=== PATIENT | female | born 1960 | race African-American/Black ===

== ENCOUNTER 2019-04-12 23:12 | Inpatient (IN) | payer MEDICAID ==
[~2019-04-12] VITALS: Ht 165.1 cm; Wt 115.3 kg
[~2019-04-12 23:12] MED LIST: ATEN100T PO; CHOL20009 PO; CYAN500L3 PO; FERR-7 PO; TRIA50TA2 PO
[2019-04-13] MEDS ORDERED: ONDANSETRON HCL 4 MG/2 ML VIAL IV ONE (00:15)
[2019-04-13] MEDS ORDERED: HYDROmorphone HCL 2 MG/ML VL IV ONE ×2 (00:15→02:30)
[2019-04-13 00:20] LABS: Basophils # (auto) 0 uL; Basophils % (auto) 0.4 % (0.0-2.0); Eosinophils # (auto) 0.1 uL; Eosinophils % (auto) 1.9 % (0.0-7.0); Hematocrit 46.9 % (36.0-46.0); Hemoglobin 15.3 g/dL (12.2-16.2); Lymphocytes # (auto) 1.3 uL; Lymphocytes % (auto) 18.6 % (10.0-50.0); Mean Corpuscular Hemoglobin 28.5 pg (28.0-32.0); Mean Corpuscular Hgb Conc. 32.7 g/dL (32.0-36.0); Mean Corpuscular Volume 87.1 fL (80.0-100.0); Monocytes # (auto) 0.4 uL; Neutrophils % (auto) 73.1 % (37.0-80.0); Platelet Count (auto) 212 10^3/uL (140-450); Red Blood Cells 5.38 10^6/uL (4.0-5.20); Red Cell Distribution Width 14.2 % (11.8-14.3); White Blood Cell 6.9 10^3/uL (4.4-10.8)
[2019-04-13 00:41] LABS: Amylase 48 U/L (25-115); Lipase 91 U/L (73-393)
[2019-04-13 00:44] LABS: INR 1.04 (0.9-1.15); Partial Thromboplastin Time 26.8 sec (23.64-32.05)
[2019-04-13 00:45] LABS: Albumin 3.6 g/dL (3.4-5.0); BUN/Creatinine Ratio 13.2; Calcium 10.4 mg/dL (8.5-10.1); Magnesium 1.9 mg/dL (1.6-2.6); Potassium 3.2 mmol/L (3.5-5.1)
[2019-04-13 00:53] LABS: Bilirubin, Total 0.5 mg/dL (0.2-1.0); Total Protein 8.2 g/dL (6.4-8.2)
[2019-04-13] MEDS ORDERED: COCAINE HCL 4% TOP SOL 4ML TOP ONE (01:00)
[2019-04-13] MEDS ORDERED: DEXTROSE (50%) 50ML SYRG IV PRN (05:30)
[2019-04-13] MEDS ORDERED: POTASSIUM CHL 20MEQ/100ML 100 ML IV ONE (05:30)
[2019-04-13] MEDS ORDERED: ONDANSETRON HCL 4 MG/2 ML VIAL IV PRN (05:30)
[2019-04-13] MEDS ORDERED: NITROGLYCERIN 0.4 MG SL TAB SL PRN (05:45)
[2019-04-13] MEDS ORDERED: MORPHINE SULF INJ 2 MG/ML SYRINGE 1ML IV PRN (05:45)
[2019-04-13] MEDS: SODIUM CHLORIDE 0.9% 1,000 ML IV SCH ×2 (06:45→20:15)
[2019-04-13] MEDS: InsuLIN REG 1unit/0.01ml Soln (100units/ml) SC SCH ×4 (07:00→22:00)
[2019-04-13] MEDS ORDERED: ACCU-CHEK COMFORT CURVE STRIP VI SCH (07:00)
[2019-04-13] MEDS: MORPHINE SULF INJ 2 MG/ML SYRINGE 1ML IV PRN ×2 (08:59→20:22)
[2019-04-13] MEDS: PANTOPRAZOLE 40 MG/10 ML VIAL INJ IV SCH (09:01)
[2019-04-13] MEDS ORDERED: GASTROGRAFIN 120 ML SOL ONE (09:12)
--- NOTE | 2019-04-13 18:38 | NUR ---
Telemetry admit from RON[facility] HALLMARTIN admitted to Telemetry unit after SBAR received. Patient oriented to Louise renee RN, unit, room, bed, and unit policies regarding patient care and visiting hours. Patient now on continuous telemetry monitoring, tele box # [id number] and telemetry reading on arrival to unit is SR 88. Patient weighed by bedscale and encouraged to call if they need something. Call light within reach, NG tube noted to left nare, placement verified via auscultation, resumed low intermittent suction as ordered by Dr Melissa Claudio, All questions and concerns addressed, patient verbalized understanding to call for assist, no current c/o pain Addendum: 04/13/19 at 1929 by Louise Qiuntero RN HYPOACTIVE BOWEL SOUNDS
--- NOTE | 2019-04-13 20:30 | NUR ---
Assessment - After repositioning, patient had 900 ml of green bile output from suction canister. Replaced canister. Patient stated she felt less pressure. No c/o of any nausea. PRN pain medication administered. Will continue to monitor.
[2019-04-13 22:00] VITALS: BP 111/62
[2019-04-14] MEDS ORDERED: DEXTROSE (50%) 50ML SYRG IV PRN (01:45)
[2019-04-14 05:03] VITALS: BP 132/72
[2019-04-14] MEDS: ACCU-CHEK COMFORT CURVE STRIP VI SCH ×2 (06:08→11:30)
[2019-04-14] MEDS: SODIUM CHLORIDE 0.9% 1,000 ML IV SCH (06:09)
[2019-04-14] MEDS: InsuLIN REG 1unit/0.01ml Soln (100units/ml) SC SCH ×4 (06:09→11:30)
--- NOTE | 2019-04-14 07:02 | NUR ---
TOTAL 1600 ML OF GREEN BILE OUTPUT FROM SUCTION CANISTER (LIS).
[2019-04-14 07:16] LABS: Basophils # (auto) 0.1 uL; Basophils % (auto) 1.1 % (0.0-2.0); Eosinophils # (auto) 0 uL; Eosinophils % (auto) 0.8 % (0.0-7.0); Hematocrit 45.7 % (36.0-46.0); Hemoglobin 14.7 g/dL (12.2-16.2); Lymphocytes # (auto) 0.7 uL; Lymphocytes % (auto) 14.7 % (10.0-50.0); Mean Corpuscular Hemoglobin 28.6 pg (28.0-32.0); Mean Corpuscular Hgb Conc. 32.1 g/dL (32.0-36.0); Mean Corpuscular Volume 88.9 fL (80.0-100.0); Monocytes # (auto) 0.5 uL; Monocytes % (auto) 10.9 % (0.0-12.0); Neutrophils # (auto) 3.6 uL; Neutrophils % (auto) 72.5 % (37.0-80.0); Nucleated Red Blood Cells % 0.1 %; Platelet Count (auto) 195 10^3/uL (140-450); Red Blood Cells 5.14 10^6/uL (4.0-5.20); Red Cell Distribution Width 14.3 % (11.8-14.3)
[2019-04-14 07:31] LABS: Calcium 9.4 mg/dL (8.5-10.1); Magnesium 2.2 mg/dL (1.6-2.6); Potassium 3.2 mmol/L (3.5-5.1)
[2019-04-14 07:35] LABS: BUN/Creatinine Ratio 23.1
[2019-04-14] MEDS ORDERED: POTASSIUM CHLORIDE 40 MEQ, LIDOCAINE 1% (LOCAL ANESTH.) 4 ML in SODIUM CHL 0.9% 100 ML IV ONE (07:45)
--- NOTE | 2019-04-14 08:00 | NUR ---
ASSUMED CARE, RESTFUL, DENIES PAIN. NG YIELDS DARK GREEN TINGED FLUID. DENIES N/V.
[2019-04-14 09:00] VITALS: BP 121/62
[2019-04-14] MEDS ORDERED: OPTISON 3ml Vial for INJ IV ONE (11:16)
--- NOTE | 2019-04-14 11:30 | NUR ---
ECHO PERFORMED AT BEDSIDE WOOD SETTER ASSISTS WITH INJECTION OF OPTISON. FSBS 57. DR. BECKER MADE AWARE. AWAITING NEW ORDER FOR IV FLUIDS. D50 IV GIVEN. REPEAT [id number]. WAS NOT PRESENT AT BEDSIDE WHEN DR. BECKER CAME TO BEDSIDE.
[2019-04-14] MEDS: PANTOPRAZOLE 40 MG/10 ML VIAL INJ IV SCH (12:30)
[2019-04-14 13:00] VITALS: BP 124/74
[2019-04-14] MEDS: D5W/SOD CHLO 0.9% 1,000 ML IV SCH (16:00)
[2019-04-14 17:00] VITALS: BP 137/80
--- NOTE | 2019-04-14 20:00 | NUR ---
Patient is awake and alert x4 speaking to family at bedside. Patient is ambulating independently. NG tube noted to patient's left nare at 61cm notch, placement verified via auscultation. Patient reports abdominal pain rated 4/10, refuses pain medication at this time. Abdomen is distended, tender to palpation. Bowel sounds hypoactive. Resumed low intermittent suction. Patient reports liquid BM today. Suction canister measuring at 100ml at start of shift. Brown to rust color liquid noted in suction container.
[2019-04-14 22:00] VITALS: BP 130/99
[2019-04-15 05:00] VITALS: BP 136/81
[2019-04-15] MEDS: D5W/SOD CHLO 0.9% 1,000 ML IV SCH (06:21)
--- NOTE | 2019-04-15 06:25 | NUR ---
NG TUBE OUTPUT APPROXIMATELY 275ML OF LIGHT BROWN TO RUST COLORED OUTPUT NOTED IN SUCTION CONTAINER OVER NIGHT.
[2019-04-15 07:41] LABS: Potassium 3.4 mmol/L (3.5-5.1)
[2019-04-15 07:48] LABS: Calcium 9.6 mg/dL (8.5-10.1)
--- NOTE | 2019-04-15 08:00 | NUR ---
ASSUMED CARE. WHITE BOARD UPDATED. SLEEPING SOUNDLY. NG CLAMPED. TELE MONITOR READS NSR 80'S.
[2019-04-15 09:00] VITALS: BP 130/74
[2019-04-15] MEDS ORDERED: GASTROGRAFIN 120 ML SOL ONE (09:02)
--- NOTE | 2019-04-15 10:25 | NUR ---
DR. BECKER PAGED WITH NO REPLY EARLIER AFTER REVIEWING LABS. IF PT REMAINS NPO WITH NG SUCTION SHE MAY BENEFIT FROM IV FLUIDS WITH DEXTROSE AND POTASSIUM CHLORIDE. PT OFF THE FLOOR. PRESUMED TO RADIOLOGY FOR GASTRIC STUDY. NOTE INFORMED BY RADIOLOGY THAT PT WAS LEAVING THE FLOOR. CALL TO RADIOLOGY CONFIRMS PT IS THERE.
--- NOTE | 2019-04-15 12:00 | NUR ---
RESTFUL ON RETURN FROM RADIOLOGY. DR. BECKER COMES TO BEDSIDE. BROUGHT TO HER ATTENTION MORNING LAB VALUES. SUGGESTED ADJUST IV FLUIDS. STATES SHE WILL REVIEW CHART AND MAKE ORDERS. FSBS SPOT CHECKED 69.
[2019-04-15 13:00] VITALS: BP 141/89
[2019-04-15] MEDS: PANTOPRAZOLE 40 MG/10 ML VIAL INJ IV SCH (13:00)
--- NOTE | 2019-04-15 13:36 | NUR ---
RADIOLOGY INFORMS TEST COMPLETE. NG OK TO BE SET TO LIS AT THIS TIME.
[2019-04-15] MEDS ORDERED: POTASSIUM CHL 20MEQ/100ML 100 ML IV ONE (13:45)
--- NOTE | 2019-04-15 14:08 | NUR ---
NUTRITION ASSESSMENT NOTES Please refer to link notes of nutrition screen form filed under the intervention section of the plan of care for further details. Est. Needs based on AdBW (71 kg): 1400 kcal to 1750 kcal (20-25 kcal/kgAdBW), 71 gms to 85 gms pro (1.0-1.2 gms/kgBW). Will continue to monitor pertinent labs and reassess nutrient need prn Thank you. Addendum: 04/15/19 at [address] Amended: Links added.
[2019-04-15] MEDS: D5W/SOD CHL 0.45%/KCL 20MEQ 1,000 ML IV SCH (16:00)
--- NOTE | 2019-04-15 16:00 | NUR ---
ACCOMPANIED DR. SCHREIBER WHEN HE EXAMINES PT. CONFIRMS BOWELS MOVING NOW. ADVISES TO SEEK GASTRIC BYPASS WITH HERNIA REPAIR THE HERNIA WILL CONTINUE WITH THE EXCESSIVE WEIGHT. RECOMMENDS SEEKING HIGHER LEVEL OF CARE FOR TREATMENT OUT PATIENT. VERBAL ORDER TO REMOVE NG TUBE AND APPLY ABDOMINAL BINDER. CONTINUES LOOSE STOOL OFTEN AFTER MD VISIT. HER IV IS PULLED OUT DURING UP TO BR. NG REMOVED. PT C/O DISCOMFORT TO THROAT AND NOSE. PT ARGUES THAT BECAUSE SHE HAS PAIN IN HER THROAT AND DIDN'T FEEL THE MORPHINE DOSE JUST PRIOR TO HER VISIT TO THE BR THAT IT MUST NOT HAVE BEEN ADMINISTERED. I REVIEWED EVENTS WITH THE PATIENT SURROUNDING THE MORPHINE DOSE AND SHE CONTINUES TO OBJECT. NEW IV START TO RT WRIST ON FIRST ATTEMPT. LINEN CHANGE FROM BLOODY IV SITE. REASSURANCE GIVEN.
[2019-04-15 16:33] VITALS: BP 147/84
--- NOTE | 2019-04-15 19:00 | NUR ---
LAST ROUND K-RIDER NOT INFUSED PUMP BATTERY HAS EXHAUSTED AND DISCHARGED SHUTTING DOWN. ABDOMINAL BINDER REQUESTED FROM [facility] [facility] AND HAS NOT ARRIVED YET. PT INDICATES FEELING BETTER NOW. FAMILY MEMBER VISITING. REPORT GIVEN TO KATIA WILDER.
--- NOTE | 2019-04-15 19:25 | NUR ---
OPENING NOTE- NOC SHIFT PATIENT IS ALERT AND ORIENTED X4. PATIENT IS IN BED, BED IS LOCKED AT LOWEST, BED RAILS UP X2. NO S/SX OF DISTRESS OR SOB. PATIENT STATES THAT SHE HAS BEEN ASKING FOR PAIN MEDICATION FOR HEADACHE SINCE 1600; [facility] HOSPITALIST. DISCUSSED POC WITH PATIENT AND INSTRUCTED PATIENT TO CALL PRN; PATIENT VERBALIZED UNDERSTANDING. WILL CONTINUE TO MONITOR Q1H AND PRN.
--- NOTE | 2019-04-15 21:57 | NUR ---
PATIENT REQUESTING TYLENOL FOR HEAD PAIN 08/30 [facility] HOSPITALIST. PAIN MEDICATION ON eMAR IS MORPHINE FOR SEVERE PAIN.
[2019-04-15 22:13] VITALS: BP 139/82
[2019-04-15] MEDS: ACETAMINOPHEN 325 MG TAB PO PRN (22:32)
--- NOTE | 2019-04-15 22:40 | NUR ---
WITNESSED PATIENT OUT OF BED TO RESTROOM. PATIENT HAS STEADY GAIT AND CAN AMBULATE INDEPENDENTLY.
--- NOTE | 2019-04-16 03:00 | NUR ---
ROUNDS PATIENT COMFORTABLE IN BED. EYES CLOSED, RESPIRATIONS ARE EVEN AND UNLABORED.
[2019-04-16] MEDS: D5W/SOD CHL 0.45%/KCL 20MEQ 1,000 ML IV SCH ×2 (04:24→16:47)
[2019-04-16 05:03] VITALS: BP 147/94
[2019-04-16] MEDS: ACETAMINOPHEN 325 MG TAB PO PRN ×2 (06:55→16:48)
--- NOTE | 2019-04-16 06:55 | NUR ---
PCP MINDY TADEO [phone] [facility] PER PATIENT
--- NOTE | 2019-04-16 07:58 | NUR ---
Opening Shift Note Assumed care of patient, awake and alert. No S/S of distress/SOB or pain. Instructed on POC and to call for assist PRN, will continue to monitor for changes Q1hr and PRN. Bed locked in lowest position with two side rails up and call light in reach.
[2019-04-16 08:00] VITALS: BP 110/55
[2019-04-16 09:00] VITALS: BP 110/55
[2019-04-16] MEDS: PANTOPRAZOLE 40 MG/10 ML VIAL INJ IV SCH (10:10)
[2019-04-16 11:57] LABS: Magnesium 2.1 mg/dL (1.6-2.6)
[2019-04-16 11:58] LABS: Potassium 3.4 mmol/L (3.5-5.1)
[2019-04-16 11:59] LABS: BUN/Creatinine Ratio 10.8; Calcium 9.1 mg/dL (8.5-10.1)
[2019-04-16 13:00] VITALS: BP 146/90
--- NOTE | 2019-04-16 15:42 | NUR ---
PER DR FIGUEROA IF PATIENT TOLERATES FULL LIQUID FOR DINNER PATIENTS DIET CAN BE ADVANCED TO PUREE FOR BREAKFAST.
[2019-04-16] MEDS ORDERED: POTASSIUM EFFERVESENT TAB 25 MEQ PO ONE (15:45)
[2019-04-16] MEDS: hydrALAZINE HCL 20 MG/ML VL IV PRN ×2 (16:48→23:01)
[2019-04-16 17:00] VITALS: BP 176/94
[2019-04-16] MEDS: MORPHINE SULF INJ 2 MG/ML SYRINGE 1ML IV PRN (21:58)
[2019-04-16 22:00] VITALS: BP 170/90
--- NOTE | 2019-04-16 22:05 | NUR ---
Called Hospitalist Hospitalist made aware of blood pressure 170/90. Received orders to resume patients home meds HCTZ 25mg Daily and Atenolol 100mg Daily.
[2019-04-17 05:30] VITALS: BP 147/87
[2019-04-17] MEDS: D5W/SOD CHL 0.45%/KCL 20MEQ 1,000 ML IV SCH (05:38)
[2019-04-17 06:32] LABS: Basophils # (auto) 0 uL; Basophils % (auto) 0.6 % (0.0-2.0); Eosinophils # (auto) 0.1 uL; Eosinophils % (auto) 3.2 % (0.0-7.0); Hematocrit 38.7 % (36.0-46.0); Hemoglobin 12.8 g/dL (12.2-16.2); Lymphocytes # (auto) 0.6 uL; Lymphocytes % (auto) 16.3 % (10.0-50.0); Mean Corpuscular Hemoglobin 28.8 pg (28.0-32.0); Mean Corpuscular Hgb Conc. 33.2 g/dL (32.0-36.0); Mean Corpuscular Volume 86.9 fL (80.0-100.0); Monocytes # (auto) 0.4 uL; Monocytes % (auto) 10.7 % (0.0-12.0); Neutrophils # (auto) 2.4 uL; Neutrophils % (auto) 69.2 % (37.0-80.0); Nucleated Red Blood Cells % 0.1 %; Platelet Count (auto) 168 10^3/uL (140-450); Red Blood Cells 4.45 10^6/uL (4.0-5.20); White Blood Cell 3.5 10^3/uL (4.4-10.8)
[2019-04-17 06:49] LABS: BUN/Creatinine Ratio 7.9; Calcium 8.3 mg/dL (8.5-10.1); Potassium 3.5 mmol/L (3.5-5.1)
[2019-04-17 08:00] VITALS: BP 134/105
[2019-04-17 09:00] VITALS: BP 134/105
[2019-04-17] MEDS ORDERED: HCTZ 25 MG TAB PO SCH (10:00)
[2019-04-17] MEDS ORDERED: ATENOLOL 50 MG TAB PO SCH (10:00)
[2019-04-17] MEDS: PANTOPRAZOLE 40 MG/10 ML VIAL INJ IV SCH (11:28)
[2019-04-17 13:00] VITALS: BP 135/135
[2019-04-17 17:00] VITALS: BP 122/66
[2019-04-17 17:23] VITALS: BP 122/66
--- NOTE | 2019-04-17 19:25 | NUR ---
Patient Discharged Pt wheeled to car via wheelchair after Iv access removed, DC teaching packet given to patient and all belongings gathered. Pt has no signs of distress at this time.
== END 2019-04-17 19:25 | disposition home or self-care (01) | DRG 247 ==
LOC: ER 23:15 → TELE 23:16 → TELE-CENTR 04-13 18:58
PROVIDERS: ADMIT Nurse Practitioner; ATTEND Internal Medicine
DX: K56.600 Partial intestinal obstruction, unspecified as to cause (principal); I21.A1 Myocardial infarction type 2; N17.0 Acute kidney failure with tubular necrosis; K57.30 Diverticulosis of large intestine without perforation or abscess without bleeding; E87.6 Hypokalemia; K43.9 Ventral hernia without obstruction or gangrene; R79.89 Other specified abnormal findings of blood chemistry; E66.01 Morbid (severe) obesity due to excess calories; E11.22 Type 2 diabetes mellitus with diabetic chronic kidney disease; E78.5 Hyperlipidemia, unspecified; E86.0 Dehydration; I12.9 Hypertensive chronic kidney disease with stage 1 through stage 4 chronic kidney disease, or unspecified chronic kidney disease; N18.9 Chronic kidney disease, unspecified; Z98.84 Bariatric surgery status; Z82.49 Family history of ischemic heart disease and other diseases of the circulatory system; Z83.3 Family history of diabetes mellitus; Z68.41 Body mass index [BMI] 40.0-44.9, adult
CPT/HCPCS: 36415; 74176; 74250; 80048; 80053; 82150; 82962; 83036; 83605; 83690; 83735; 83880; 84484; 85025; 85610; 85730; 93306; 96365; 96375; 96376; C9113; G0378; J2001; J2405; J3480; Q9956

== ENCOUNTER 2020-07-10 11:49 | Emergency (ER) | payer MEDICAID ==
[~2020-07-10] VITALS: Ht 170.2 cm; Wt 83.9 kg
[2020-07-10 12:41] LABS: Urine Bacteria FEW /hpf (None Seen); Urine Blood Negative /uL (Negative); Urine Specific Gravity 1.022 (1.001-1.035); Urine WBC 4 /hpf (0 - 5)
[2020-07-10 13:41] LABS: Basophils # (auto) 0 10 ^3/uL (0-0.2); Basophils % (auto) 0.7 % (0.0-2.0); Eosinophils # (auto) 0 10 ^3/uL (0-0.8); Eosinophils % (auto) 0.6 % (0.0-7.0); Hematocrit 41.3 % (36.0-46.0); Hemoglobin 13.5 g/dL (12.2-16.2); Lymphocytes % (auto) 16.3 % (10.0-50.0); Mean Corpuscular Hemoglobin 28.3 pg (28.0-32.0); Mean Corpuscular Hgb Conc. 32.6 g/dL (32.0-36.0); Mean Corpuscular Volume 86.7 fL (80.0-100.0); Monocytes # (auto) 0.4 10 ^3/uL (0-1.3); Monocytes % (auto) 6.5 % (0.0-12.0); Neutrophils # (auto) 4.6 10 ^3/uL (1.6-8.6); Neutrophils % (auto) 75.9 % (37.0-80.0); Platelet Count (auto) 210 10^3/uL (140-450); Red Blood Cells 4.76 10^6/uL (4.0-5.20); Red Cell Distribution Width 14.4 % (11.8-14.3)
[2020-07-10 13:57] LABS: Albumin 3.3 g/dL (3.4-5.0); Calcium 9.9 mg/dL (8.5-10.1); Magnesium 2.2 mg/dL (1.6-2.6); Potassium 3.1 mmol/L (3.5-5.1)
[2020-07-10 14:03] LABS: BUN/Creatinine Ratio 21.3; Bilirubin, Total 0.3 mg/dL (0.2-1.0); Total Protein 7.5 g/dL (6.4-8.2)
[2020-07-10] MEDS ORDERED: ACETAMINOPHEN 325 MG TAB PO ONE (16:30)
[2020-07-10] MEDS ORDERED: POTASSIUM CHL 20 Meq TABLET PO ONE (17:15)
[2020-07-10 19:32] VITALS: BP 141/71
== END 2020-07-10 20:33 | disposition home or self-care (01) ==
LOC: ER 11:49
DX: N39.0 Urinary tract infection, site not specified (principal); E42 Marasmic kwashiorkor; E87.6 Hypokalemia; E11.9 Type 2 diabetes mellitus without complications; I10 Essential (primary) hypertension; Z79.899 Other long term (current) drug therapy; Z90.49 Acquired absence of other specified parts of digestive tract
CPT/HCPCS: 36415; 70450; 71046; 80053; 81001; 83735; 84484; 85025; 85379; 93005

== ENCOUNTER 2021-05-01 23:12 | Emergency (ER) | payer MEDICAID ==
[~2021-05-01] VITALS: Ht 165.1 cm; Wt 113.4 kg
[2021-05-02] MEDS ORDERED: METOCLOPRAMIDE HCL 5MG/ml INJ 2ml VIAL IV ONE (00:15)
[2021-05-02] MEDS ORDERED: diphenhdrAMINE HCL 50 MG/1 ML VL IV ONE (00:15)
[2021-05-02] MEDS ORDERED: ONDANSETRON HCL 4 MG/2 ML VIAL IV ONE (00:15)
[2021-05-02 01:31] LABS: Basophils # (auto) 0 10 ^3/uL (0-0.2); Basophils % (auto) 0.5 % (0.0-2.0); Eosinophils # (auto) 0.1 10 ^3/uL (0-0.8); Eosinophils % (auto) 1.2 % (0.0-7.0); Hematocrit 38.8 % (36.0-46.0); Hemoglobin 12.7 g/dL (12.2-16.2); Lymphocytes # (auto) 1.1 10 ^3/uL (0.4-5.4); Lymphocytes % (auto) 22.5 % (10.0-50.0); Mean Corpuscular Hemoglobin 29.1 pg (28.0-32.0); Mean Corpuscular Hgb Conc. 32.8 g/dL (32.0-36.0); Mean Corpuscular Volume 88.6 fL (80.0-100.0); Monocytes # (auto) 0.4 10 ^3/uL (0-1.3); Monocytes % (auto) 8.5 % (0.0-12.0); Neutrophils # (auto) 3.2 10 ^3/uL (1.6-8.6); Neutrophils % (auto) 67.3 % (37.0-80.0); Red Blood Cells 4.38 10^6/uL (4.0-5.20); Red Cell Distribution Width 13.4 % (11.8-14.3); White Blood Cell 4.8 10^3/uL (4.4-10.8)
[2021-05-02 01:50] LABS: Albumin 2.9 g/dL (3.4-5.0); Calcium 9.4 mg/dL (8.5-10.1); Potassium 3.5 mmol/L (3.5-5.1)
[2021-05-02 01:55] LABS: Bilirubin, Total 0.2 mg/dL (0.2-1.0); Total Protein 6.6 g/dL (6.4-8.2)
[2021-05-02] MEDS ORDERED: ASPirin 325 MG TAB PO ONE (02:30)
[2021-05-02 09:01] VITALS: BP 129/79
== END 2021-05-02 09:08 | disposition home or self-care (01) ==
LOC: ER 23:18
DX: I10 Essential (primary) hypertension (principal); M79.89 Other specified soft tissue disorders; E11.9 Type 2 diabetes mellitus without complications; R51.9 Headache, unspecified; Z90.49 Acquired absence of other specified parts of digestive tract
CPT/HCPCS: 36415; 71045; 80053; 83880; 84484; 85025; 93005; 93970; 96374; 96375; 99285; J1200; J2405; J2765

== ENCOUNTER 2022-11-06 04:37 | Inpatient (IN) | payer MEDICAID ==
[2022-11-06] VITALS (7 sets, daily range): BP systolic 136–157; BP diastolic 75–89; PULSE 61–96; RESP 15–19; TEMP 97.7–98.4; O2SAT 94–98
[~2022-11-06] VITALS: Ht 162.6 cm; Wt 98.2 kg
[~2022-11-06 04:37] MED LIST changes: -CYAN500L3 PO; +CYAN500L4 PO; -TRIA50TA2 PO; +TRIA75TA11 PO
[2022-11-06 05:52] LABS: Basophils # (auto) 0 10 ^3/uL (0-0.2); Basophils % (auto) 0.7 % (0.0-2.0); Eosinophils # (auto) 0.1 10 ^3/uL (0-0.8); Eosinophils % (auto) 1.4 % (0.0-7.0); Hematocrit 37.1 % (36.0-46.0); Hemoglobin 12.2 g/dL (12.2-16.2); Lymphocytes # (auto) 1.7 10 ^3/uL (0.4-5.4); Mean Corpuscular Hemoglobin 28.4 pg (28.0-32.0); Mean Corpuscular Hgb Conc. 32.9 g/dL (32.0-36.0); Mean Corpuscular Volume 86.2 fL (80.0-100.0); Monocytes # (auto) 0.5 10 ^3/uL (0-1.3); Neutrophils # (auto) 3.6 10 ^3/uL (1.6-8.6); Neutrophils % (auto) 60.9 % (37.0-80.0); Nucleated Red Blood Cells % 0.1 %; Red Cell Distribution Width 14.1 % (11.8-14.3); White Blood Cell 5.9 10^3/uL (4.4-10.8)
[2022-11-06 06:13] LABS: Potassium 3.7 mmol/L (3.5-5.1)
[2022-11-06 06:24] LABS: Albumin 3.4 g/dL (3.4-5.0); BUN/Creatinine Ratio 23.1 (10.0-20.0); Bilirubin, Total 0.3 mg/dL (0.2-1.0); Calcium 9.8 mg/dL (8.5-10.1); Total Protein 7.4 g/dL (6.4-8.2)
[2022-11-06] MEDS ORDERED: ONDANSETRON HCL 4 MG/2 ML VIAL IV ONE (06:45)
[2022-11-06] MEDS ORDERED: SODIUM CHLORIDE 0.9% 500 ML IVB ONE (06:45)
[2022-11-06] MEDS ORDERED: PANTOPRAZOLE 40 MG/10 ML VIAL INJ IV ONE (06:45)
[2022-11-06 07:38] LABS: Urine Bacteria NONE SEEN /hpf (None Seen); Urine Blood Negative /uL (Negative); Urine Clarity Clear (Clear); Urine Color Yellow (Yellow); Urine Protein, UAD Negative (Negative); Urine Specific Gravity 1.017 (1.001-1.035); Urine Urobilinogen Normal (Negative); Urine WBC 17 /hpf (0 - 5)
[2022-11-06] MEDS ORDERED: cefTRIAXone 1GM/50ML D5W 50 ML IV ONE (08:15)
[2022-11-06] MEDS ORDERED: MORPHINE SULFATE INJ 2 MG/ml SYRG IV PRN (09:30)
[2022-11-06] MEDS ORDERED: DEXTROSE (50%) 50ML SYRG IV PRN (09:30)
[2022-11-06] MEDS ORDERED: ONDANSETRON HCL 4 MG/2 ML VIAL IV PRN (09:30)
[2022-11-06] MEDS: SODIUM CHLORIDE 0.9% 1,000 ML IV SCH ×2 (09:54→17:53)
[2022-11-06] MEDS ORDERED: PANTOPRAZOLE 40 MG/10 ML VIAL INJ IV SCH (10:00)
[2022-11-06 10:14] LABS: INR 1.13 (0.9-1.15); Prothrombin Time 11.8 sec (9.3-11.8)
[2022-11-06] MEDS: PANTOPRAZOLE 40 MG/10 ML VIAL INJ IV SCH (11:05)
[2022-11-06] MEDS: InsuLIN REG 1unit/0.01ml Soln (100units/ml) SC SCH ×3 (12:00→23:09)
[2022-11-06 12:08] LABS: Hematocrit 38.5 % (36.0-46.0); Hemoglobin 12.4 g/dL (12.2-16.2)
[2022-11-06] MEDS: ACCU-CHEK COMFORT CURVE STRIP VI SCH ×3 (14:39→23:09)
[2022-11-06] MEDS ORDERED: LISI20TA56 PO (14:54)
[2022-11-06] MEDS ORDERED: CLON0.1T PO (14:55)
[2022-11-06] MEDS ORDERED: IBUP1TAB5 PO (14:58)
[2022-11-06 18:51] LABS: Hematocrit 35.6 % (36.0-46.0); Hemoglobin 11.5 g/dL (12.2-16.2)
[2022-11-06] MEDS: LISINOPRIL 20 MG TAB PO SCH (22:23)
[2022-11-06] MEDS: ACETAMINOPHEN 325 MG TAB PO PRN (22:24)
[2022-11-07 01:03] LABS: Hematocrit 35.8 % (36.0-46.0); Hemoglobin 11.6 g/dL (12.2-16.2)
[2022-11-07] MEDS: SODIUM CHLORIDE 0.9% 1,000 ML IV SCH ×2 (01:53→10:53)
[2022-11-07 05:00] VITALS: BP 120/51; PULSE 61; RESP 18; TEMP 97.7; O2SAT 97
[2022-11-07 05:49] LABS: Basophils # (auto) 0 10 ^3/uL (0-0.2); Eosinophils # (auto) 0.1 10 ^3/uL (0-0.8); Eosinophils % (auto) 3.1 % (0.0-7.0); Hematocrit 33.6 % (36.0-46.0); Hemoglobin 10.8 g/dL (12.2-16.2); Lymphocytes # (auto) 1.4 10 ^3/uL (0.4-5.4); Lymphocytes % (auto) 32.1 % (10.0-50.0); Mean Corpuscular Hemoglobin 27.9 pg (28.0-32.0); Mean Corpuscular Hgb Conc. 32.2 g/dL (32.0-36.0); Mean Corpuscular Volume 86.7 fL (80.0-100.0); Monocytes # (auto) 0.4 10 ^3/uL (0-1.3); Monocytes % (auto) 8.3 % (0.0-12.0); Neutrophils # (auto) 2.5 10 ^3/uL (1.6-8.6); Neutrophils % (auto) 55.5 % (37.0-80.0); Nucleated Red Blood Cells % 0.1 %; Red Blood Cells 3.88 10^6/uL (4.0-5.20); Red Cell Distribution Width 13.8 % (11.8-14.3); White Blood Cell 4.5 10^3/uL (4.4-10.8)
[2022-11-07] MEDS: ACCU-CHEK COMFORT CURVE STRIP VI SCH ×2 (06:00→11:53)
[2022-11-07] MEDS: InsuLIN REG 1unit/0.01ml Soln (100units/ml) SC SCH ×2 (06:00→11:57)
[2022-11-07 06:14] LABS: Potassium 3.4 mmol/L (3.5-5.1)
[2022-11-07 06:21] LABS: Albumin 2.9 g/dL (3.4-5.0); BUN/Creatinine Ratio 19.6 (10.0-20.0); Calcium 8.6 mg/dL (8.5-10.1)
[2022-11-07 06:24] LABS: Bilirubin, Total 0.5 mg/dL (0.2-1.0); Total Protein 6.1 g/dL (6.4-8.2)
[2022-11-07] MEDS: LISINOPRIL 20 MG TAB PO SCH ×2 (08:24→22:13)
[2022-11-07] MEDS: PANTOPRAZOLE 40 MG/10 ML VIAL INJ IV SCH (08:25)
[2022-11-07] MEDS: ACETAMINOPHEN 325 MG TAB PO PRN (08:25)
[2022-11-07] MEDS: cefTRIAXone 1GM/50ML D5W 50 ML IV SCH (08:25)
[2022-11-07 09:00] VITALS: BP 151/95; PULSE 78; RESP 18; TEMP 97.6; O2SAT 93
[2022-11-07] MEDS: DOCUSATE SOD 100 MG CAP PO PRN ×2 (11:00→22:13)
[2022-11-07] MEDS ORDERED: POTASSIUM CHL 20 Meq TABLET PO ONE (11:30)
[2022-11-07 12:14] LABS: Hematocrit 36.3 % (36.0-46.0); Hemoglobin 11.4 g/dL (12.2-16.2)
[2022-11-07 13:00] VITALS: BP_SYST 123; BP_SYST 144; BP_DIAS 59; BP_DIAS 91; PULSE 76; PULSE 78; RESP 19; RESP 20; O2SAT 96
[2022-11-07 13:01] LABS: Cholesterol 163 mg/dL (< 200)
[2022-11-07 13:04] LABS: HDL Cholesterol 59 mg/dL (40-59); LDL Cholesterol 95 mg/dL (< 100); Triglycerides 70 mg/dL (< 150)
[2022-11-07 13:15] LABS: Folate (Folic Acid) 22.81 ng/mL (5.38-24)
[2022-11-07] MEDS: amLODIPine BESYLATE 5 MG TAB PO SCH (14:43)
[2022-11-07 17:05] VITALS: BP 161/78; PULSE 66; RESP 18; TEMP 97.5; O2SAT 98
[2022-11-07 20:00] VITALS: BP 140/83; PULSE 65; RESP 18; TEMP 98
[2022-11-07 22:00] VITALS: BP 140/83; PULSE 65; RESP 18; TEMP 98; O2SAT 95
[2022-11-08 05:00] VITALS: BP 151/85; PULSE 80; RESP 18; TEMP 97.4; O2SAT 97
[2022-11-08] MEDS: ACETAMINOPHEN 325 MG TAB PO PRN (05:59)
[2022-11-08 06:01] VITALS: BP 140/74
[2022-11-08 06:33] LABS: Basophils # (auto) 0 10 ^3/uL (0-0.2); Basophils % (auto) 0.9 % (0.0-2.0); Eosinophils # (auto) 0.1 10 ^3/uL (0-0.8); Eosinophils % (auto) 2.7 % (0.0-7.0); Hematocrit 36.7 % (36.0-46.0); Hemoglobin 11.6 g/dL (12.2-16.2); Lymphocytes # (auto) 1.5 10 ^3/uL (0.4-5.4); Lymphocytes % (auto) 32.5 % (10.0-50.0); Mean Corpuscular Hemoglobin 27.8 pg (28.0-32.0); Mean Corpuscular Hgb Conc. 31.6 g/dL (32.0-36.0); Mean Corpuscular Volume 88.1 fL (80.0-100.0); Monocytes # (auto) 0.4 10 ^3/uL (0-1.3); Monocytes % (auto) 9.8 % (0.0-12.0); Neutrophils # (auto) 2.4 10 ^3/uL (1.6-8.6); Neutrophils % (auto) 54.1 % (37.0-80.0); Nucleated Red Blood Cells % 0.2 %; Red Blood Cells 4.16 10^6/uL (4.0-5.20); Red Cell Distribution Width 13.8 % (11.8-14.3); White Blood Cell 4.5 10^3/uL (4.4-10.8)
[2022-11-08 06:50] LABS: Calcium 9.3 mg/dL (8.5-10.1); Potassium 3.7 mmol/L (3.5-5.1)
[2022-11-08 06:52] LABS: BUN/Creatinine Ratio 12.7 (10.0-20.0)
[2022-11-08 08:00] VITALS: BP 147/66; PULSE 58; RESP 16; TEMP 97.5; O2SAT 100
[2022-11-08] MEDS: cefTRIAXone 1GM/50ML D5W 50 ML IV SCH (08:44)
[2022-11-08] MEDS ORDERED: LACTULOSE 20Gm/30ML SOLN PO ONE (09:30)
[2022-11-08] MEDS ORDERED: HYDROcodone-ACET 5/325MG TAB PO PRN (09:30)
[2022-11-08] MEDS: amLODIPine BESYLATE 5 MG TAB PO SCH (10:53)
[2022-11-08] MEDS: LISINOPRIL 20 MG TAB PO SCH (10:53)
[2022-11-08] MEDS: PANTOPRAZOLE 40 MG/10 ML VIAL INJ IV SCH (10:53)
[2022-11-08] MEDS ORDERED: AML5T PO (15:19)
[2022-11-08 16:18] VITALS: BP 145/69; PULSE 60; RESP 17; TEMP 97.4; O2SAT 98
[2022-11-08] MEDS ORDERED: CEPH500C PO (17:58)
[2022-11-10 13:58] LABS: Hepatitis A Ab IgM Negative; Hepatitis B Core IgM Negative; Hepatitis B Surface Antigen Negative (Negative); Hepatitis C Antibody Negative (Negative)
== END 2022-11-08 19:40 | disposition home or self-care (01) | DRG 244 ==
LOC: ER 04:37 → OVERFLOW 09:32 → CENTRAL 12:41
PROVIDERS: ADMIT Internal Medicine; ATTEND Student in an Organized Health Care Education/Training Program
DX: K57.91 Diverticulosis of intestine, part unspecified, without perforation or abscess with bleeding (principal); E44.0 Moderate protein-calorie malnutrition; E11.40 Type 2 diabetes mellitus with diabetic neuropathy, unspecified; R16.0 Hepatomegaly, not elsewhere classified; N30.90 Cystitis, unspecified without hematuria; E66.01 Morbid (severe) obesity due to excess calories; D64.9 Anemia, unspecified; E78.5 Hyperlipidemia, unspecified; K64.9 Unspecified hemorrhoids; E86.0 Dehydration; I10 Essential (primary) hypertension; N28.1 Cyst of kidney, acquired; E87.6 Hypokalemia; K43.9 Ventral hernia without obstruction or gangrene; N20.0 Calculus of kidney; F41.9 Anxiety disorder, unspecified; G43.909 Migraine, unspecified, not intractable, without status migrainosus; K21.9 Gastro-esophageal reflux disease without esophagitis; Z82.49 Family history of ischemic heart disease and other diseases of the circulatory system; Z68.37 Body mass index [BMI] 37.0-37.9, adult; Z83.3 Family history of diabetes mellitus; Z87.442 Personal history of urinary calculi; Z79.899 Other long term (current) drug therapy; Z90.49 Acquired absence of other specified parts of digestive tract
CPT/HCPCS: 36415; 74176; 80048; 80053; 80061; 80074; 81001; 82270; 82607; 82746; 82962; 83036; 83690; 84443; 84484; 85014; 85018; 85025; 85610; 86850; 86900; 86901; 87086; 96365; 96375; C9113; G0378; J0696

== ENCOUNTER 2022-11-11 15:48 | Emergency (ER) | payer MEDICAID ==
[~2022-11-11] VITALS: Ht 162.6 cm; Wt 104.2 kg
[~2022-11-11 15:48] MED LIST changes: +AML5T PO; -ATEN100T PO; +CEPH500C PO; -CHOL20009 PO; +CLON0.1T PO; -CYAN500L4 PO; -FERR-7 PO; +IBUP1TAB5 PO; +LISI20TA56 PO; -TRIA75TA11 PO
[2022-11-11 17:17] LABS: Urine Bacteria FEW /hpf (None Seen); Urine Blood Negative /uL (Negative); Urine Clarity Clear (Clear); Urine Color Yellow (Yellow); Urine Protein, UAD Negative (Negative); Urine Specific Gravity 1.018 (1.001-1.035); Urine Urobilinogen Normal (Negative); Urine WBC <1 /hpf (0 - 5); Urine pH 5.5 (5.0-8.0)
[2022-11-11 19:01] VITALS: BP 178/116; PULSE 94; RESP 18; TEMP 98.4; O2SAT 98
== END 2022-11-11 18:40 | disposition left against medical advice (07) ==
LOC: ER 15:48
DX: K62.5 Hemorrhage of anus and rectum (principal); Z53.21 Procedure and treatment not carried out due to patient leaving prior to being seen by health care provider
CPT/HCPCS: 81001